=== PATIENT | male | born 2005 | race Two or more races ===

== ENCOUNTER 2024-04-24 22:09 | Emergency (ER) | payer MEDICAID, OTHER ==
[~2024-04-24] VITALS: Ht 177.8 cm; Wt 81.8 kg
[2024-04-24] MEDS: SODIUM CHLORIDE 0.9% 1,000 ML IVB ONE (22:45)
--- NOTE | 2024-04-24 23:02 | ED.PDOC ---
History of Present Illness HPI Comments 18 y/o M, with a Hx of heart murmur and polysubstance abuse, is BIBA for c/o ALOC w/decrease responsiveness s/p substance overdose, today. Per EMS report, patient was reported to have became unresponsive after taking methamphetamine and fentanyl in his backyard, earlier, this evening. He was commented to have responded positively after being given 9mg of Narcan by [facility], who arrived on scene, first. Upon arrival to ED and time of assessment, EMS staff comments on patient being A&Ox4 and GCS15, with no complaints at this time. Chief Complaint: Overdose Time Seen by MD: 22:45 Reviewed Notes: Nurses Notes, Railroad Dispatcher Notes, Medications, Allergies Allergies: Coded Allergies: NO KNOWN ALLERGIES (Unverified , 04/24/24) Information Source: Patient, Emergency Med Personnel Mode of Arrival: EMS Severity: Moderate Timing: Hours Duration: Since onset Prehospital treatment: 12 Lead EKG, Premium Cancellation Clerk, Other (9mg Narcan ) Past Medical History Past Medical History (Other): heart mumur Surgical History: Denies all surgeries Family History Family History: Unknown Social History Smoker: Non-Smoker Alcohol: Denies ETOH Use Drugs: Methamphetamine, Other (fentanyl) Lives In: Home Neurological: reports: others (ALOC w/decrease responsiveness) All Other Systems: Reviewed and Negative (negative unless otherwise stated above or in HPI) Physical Exam General Appearance: Moderate Distress, Normal HEENT: Normal ENT Inspection, Pharynx Normal, TMs Normal Neck: Full Range of Motion, Non-Tender, Normal, Normal Inspection Respiratory: Chest Non-Tender, Lungs Clear, No Accessory Muscle Use, No Respiratory Distress, Normal Breath Sounds Cardiovascular: No Edema, No JVD, No Murmur, No Gallop, Normal Peripheral Pulses, Regular Rate/Rhythm Breast Exam: Deferred Gastrointestinal: No Organomegaly, Non Tender, No Pulsatile Mass, Normal Bowel Sounds, Soft Genitalia: Deferred Pelvic: Deferred Rectal: Deferred Extremities: No calf tenderness, Normal capillary refill, Normal inspection, Normal range of motion, Non-tender, No pedal edema Musculoskeletal : Apperance: Normal Neurologic: Alert, choke reamer II-XII nml as Tested, No Motor Deficits, Normal Affect, Normal Mood, No Sensory Deficits Cerebellar Function: Normal Reflexes: Normal Skin: Dry, Normal Color, Warm Lymphatic: No Adenopathy Was a procedure done? Was a procedure done?: No EKG EKG : Pulse Rate (adult): 104 [place]: Normal Cardiac Rhythm: ST Block: None Hypertrophy: None ST: Normal Differential Dx Considerations may include: substance abuse, substance overdose, encephalopathy, methamphetamine abuse, fentanyl abuse X-Ray, Labs, Meds, VS Vital Signs Date Time Temp Pulse Resp B/P (MAP) Pulse Ox O2 Delivery O2 Flow Rate FiO2 04/25/24 02:29 85 16 135/82 (99) 96 04/24/24 23:02 104 04/24/24 22:26 104 04/24/24 22:15 98.7 113 20 139/64 (89) 96 Lab Test 04/25/24 01:45 04/24/24 22:51 Range/Units Myoglobin Pending White Blood Count 23.3 H 4.4-10.8 10^3/uL Red Blood Count 5.44 4.5-5.90 10^6/uL Hemoglobin 16.0 13.5-17.5 g/dL Hematocrit 49.8 41.0-53.0 % Mean Corpuscular Volume 91.6 80.0-100.0 fL Mean Corpuscular Hemoglobin 29.4 28.0-32.0 pg Mean Corpuscular Hemoglobin Concent 32.1 32.0-36.0 g/dL Red Cell Distribution Width 13.8 11.8-14.3 % Platelet Count 340 140-450 10^3/uL Mean Platelet Volume 6.8 L 6.9-10.8 fL Neutrophils (%) (Auto) 90.3 H 37.0-80.0 % Lymphocytes (%) (Auto) 6.0 L 10.0-50.0 % Monocytes (%) (Auto) 3.4 0.0-12.0 % Eosinophils (%) (Auto) 0.2 0.0-7.0 % Basophils (%) (Auto) 0.1 0.0-2.0 % Neutrophils # (Auto) 21.0 H 1.6-8.6 10 ^3/uL Lymphocytes # (Auto) 1.4 0.4-5.4 10 ^3/uL Monocytes # (Auto) 0.8 0-1.3 10 ^3/uL Eosinophils # (Auto) 0 0-0.8 10 ^3/uL Basophils # (Auto) 0 0-0.2 10 ^3/uL Nucleated Red Blood Cells 0.1 % Sodium Level 143 136-145 mmol/L Potassium Level 4.3 3.5-5.1 mmol/L Chloride Level 111 H 98-107 mmol/L Carbon Dioxide Level 26 20-31 mmol/L Anion Gap 6 5-15 Blood Urea Nitrogen 15 9-23 mg/dL Creatinine 1.35 H 0.700-1.30 mg/dL Glomerular Filtration Rate Calc 77 >90 mL/min BUN/Creatinine Ratio 11.1 10.0-20.0 Serum Glucose 82 74-106 mg/dL Calcium Level 10.2 8.7-10.4 mg/dL Total Bilirubin 0.2 0.2-1.0 mg/dL Aspartate Amino Transferase (AST) 648 H 13-40 U/L Alanine Aminotransferase (ALT) 529 H 7-40 U/L Alkaline Phosphatase 132 H 46-116 U/L Creatine Kinase 96 46-171 U/L Total Protein 8.5 H 5.7-8.2 g/dL Albumin 4.5 3.2-4.8 g/dL Salicylates Level < 3.0 -30 mg/dL Acetaminophen Level < 2.0 L 10.0-20.0 UG/ML Plasma/Serum Blood Alcohol < 3.0 <10 mg/dL Current Medications Medications (Trade) Dose Ordered Sig/Cali Route Start Time Stop Time Status Last Admin Sodium Chloride 1,000 ml @ 1,000 mls/hr Q1H ONCE IVB 04/24/24 22:45 04/24/24 23:44 DC 04/24/24 22:45 White blood cell count is 23.3 1000. This is probably due to stress two polysubstance abuse. LFTs are elevated. Alcohol level is less than three. Creatinine level is 1.35. Patient was placed on Rocephin prior to discharge and placed on ED ops. Time of 1ST Reevaluation: 23:15 Reevaluation 1ST: Unchanged Patient Education/Counseling: Diagnosis, Treatment Family Education/Counseling: No Family Present Departure 1 Departure Time of Disposition: 03:28 Impression: Primary Impression: Polysubstance abuse Additional Impression: Leukocytosis Qualified Codes: D72.829 - Elevated white blood cell count, unspecified Disposition: 30 STILL A PATIENT Admit to: ED ops Condition: Guarded Critical Care Note Critical Care Time?: Yes (35 min-critical care time only) Stability Stability form required: No Heart Score Heart Score: Heart Score Response (Comments) Value History N/A 0 EKG N/A 0 Age N/A 0 Risk Factors N/A 0 Troponin N/A 0 Total 0 I personally scribed for EDEL SWANSON MD ([email or web address]) on 04/24/24 at 23:02. Electronically submitted by Emanuel Eldridge ([email or web address]). EDEL SWANSON MD Apr 24, 2024 23:02
[2024-04-24 23:04] LABS: Basophils # (auto) 0 10 ^3/uL (0-0.2); Basophils % (auto) 0.1 % (0.0-2.0); Eosinophils # (auto) 0 10 ^3/uL (0-0.8); Eosinophils % (auto) 0.2 % (0.0-7.0); Hematocrit 49.8 % (41.0-53.0); Lymphocytes # (auto) 1.4 10 ^3/uL (0.4-5.4); Mean Corpuscular Hemoglobin 29.4 pg (28.0-32.0); Mean Corpuscular Hgb Conc. 32.1 g/dL (32.0-36.0); Mean Corpuscular Volume 91.6 fL (80.0-100.0); Monocytes # (auto) 0.8 10 ^3/uL (0-1.3); Monocytes % (auto) 3.4 % (0.0-12.0); Neutrophils % (auto) 90.3 % (37.0-80.0); Nucleated Red Blood Cells % 0.1 %; Platelet Count (auto) 340 10^3/uL (140-450); Red Blood Cells 5.44 10^6/uL (4.5-5.90); Red Cell Distribution Width 13.8 % (11.8-14.3); White Blood Cell 23.3 10^3/uL (4.4-10.8)
[2024-04-24] MEDS: SODIUM CHLORIDE 0.9% 1,000 ML IV ONE (23:20)
[2024-04-24 23:23] LABS: Albumin 4.5 g/dL (3.2-4.8); Anion Gap 6 (5-15); BUN/Creatinine Ratio 11.1 (10.0-20.0); Blood Urea Nitrogen 15 mg/dL (9-23); Calcium 10.2 mg/dL (8.7-10.4); Carbon Dioxide 26 mmol/L (20-31); Glucose 82 mg/dL (74-106); Potassium 4.3 mmol/L (3.5-5.1); Sodium 143 mmol/L (136-145)
[2024-04-24 23:36] LABS: Acetaminophen < 2.0 UG/ML (10.0-20.0); Salicylate < 3.0 mg/dL (-30)
[2024-04-24 23:37] LABS: Alanine Aminotransferase 529 U/L (7-40); Alkaline Phosphatase 132 U/L (46-116); Aspartate Aminotransferase 648 U/L (13-40); Bilirubin, Total 0.2 mg/dL (0.2-1.0); Chloride 111 mmol/L (98-107); Total Protein 8.5 g/dL (5.7-8.2)
[2024-04-24 23:40] LABS: Blood Alcohol < 3.0 mg/dL (<10)
[2024-04-25 02:29] VITALS: BP 135/82
[2024-04-25] MEDS: SODIUM CHLORIDE 0.9% 2,000 ML IV ONE (02:48)
[2024-04-25 05:30] VITALS: PULSE 85; RESP 16; O2SAT 99
--- NOTE | 2024-04-26 06:35 | ECG ---
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
== END 2024-04-25 05:40 | disposition home or self-care (01) ==
LOC: ER 22:09 → EDBD 22:09 → ER 04-25 05:40
DX: D72.829 Elevated white blood cell count, unspecified (principal); F19.10 Other psychoactive substance abuse, uncomplicated
CPT/HCPCS: 36415; 80053; 80320; 80329; 82550; 82962; 83874; 85025; 93005; 96360; 96361; 99285; J7030